=== PATIENT | male | born 1955 | race Caucasian/White ===

== ENCOUNTER → 2020-02-02 | Emergency (ER) | payer BC ==
[~2020-02-02] VITALS: Ht 180.3 cm; Wt 122.5 kg
[~2020-02-02] MED LIST: ETOMIDATE (2MG/ML) 20ML VIAL IV ONE; HYDROmorphone HCL 2 MG/ML VL IV ONE; ONDANSETRON HCL 4 MG/2 ML VIAL IV ONE
[2020-02-02 10:00] VITALS: BP 147/90
== END | disposition home or self-care (01) ==
LOC: ER 08:12
DX: S43.084A Other dislocation of right shoulder joint, initial encounter (principal); S43.014A Anterior dislocation of right humerus, initial encounter
CPT/HCPCS: 23650; 73020; 73030; 96374; 96375; 99285; J1170; J2405